=== PATIENT | male | born 1945 | race African-American/Black ===

== ENCOUNTER 2019-01-15 16:22 | Emergency (ER) | payer OTHER ==
[~2019-01-15] VITALS: Ht 170.2 cm; Wt 64.9 kg
[2019-01-15 16:22] VITALS: BP 166/101
--- NOTE | 2019-01-15 16:22 | NUR ---
PT BIBA BLS TO ER BED 04
--- NOTE | 2019-01-15 16:42 | NUR ---
73M BIB EMS, PT IS HOMELESS AND REPORTS BURNING AND FRQUENCY. PT REPORTS HIS ELDER CATHETER TUBING BROKE AND NOW REPORTS PAIN IN [place] 10/10 BURNING AND CLOUDY URINE. CATHETER PLACED 3 WEEKS AGO FOR RETENTION. PT IS INCONTINENT. DENIES N/V/FEVER. STATES DIARRHEA X 2 WEEKS. PMH--HTN, USES W/C, LL EXTREMITY ABOVE THE KNEE AMPUTATION (REPORTS INFECTION) NKA
--- NOTE | 2019-01-15 18:21 | NUR ---
PATIENT VOIDED A TINY AMOUNT. ABLE TO DO DIPSTICK, BUT INADEQUATE FOR CULTURE AND UA. PT STATES HE WILL TRY AGAIN LATER. REFUSED I&O CATH.
--- NOTE | 2019-01-15 18:26 | NUR ---
CHILD CENTER ASSISTANT SAID SHE WILL TAKE URINE SAMPLE BACK TO LAB AND SEE IT IT IS ENOUGH QUANTITY.
--- NOTE | 2019-01-15 18:37 | NUR ---
PT DENIES PAIN. WILL TRY TO PROVIDE MORE URINE NOW.
[2019-01-15 18:41] LABS: APPEARANCE,URINE SL CLOUDY (CLEAR); BILIRUBIN,URINE 1+ (NEGATIVE); BLOOD, URINE 3+ (NEGATIVE); COLOR,URINE YELLOW (YELLOW); LEUKOCYTE ESTERASE ,URINE 2+ (NEGATIVE); NITRITE, URINE POSITIVE (NEGATIVE); UGLUCOSE NEGATIVE (NEGATIVE)
[2019-01-15 18:42] LABS: RBC,URINE TOO NUMEROUS TO COUN /HPF (0-5); WBC,URINE TOO MANY TO COUNT /HPF (0-5)
--- NOTE | 2019-01-15 19:00 | NUR ---
MT CALLING FOR BUS PASS AND FOOD PACK.
[2019-01-15 19:10] VITALS: BP 158/98
--- NOTE | 2019-01-15 19:10 | NUR ---
Patient discharged with v/s stable. Written and verbal after care instructions given and explained. Patient alert, oriented and verbalized understanding of instructions. D/C VIA WHEELCAHIR. VSS. BUS PASS AND HOMELESS FOOD PACK AND RESOURCES GIVEN TO PT. All questions addressed prior to discharge. ID band removed. Patient advised to follow up with PMD. Rx of FLOMAX, CEPHALEXIN, HCTZ given. Patient educated on indication of medication including possible reaction and side effects. Opportunity to ask questions provided and answered.
== END 2019-01-15 19:10 | disposition home or self-care (01) ==
LOC: MED 16:22
DX: N39.0 Urinary tract infection, site not specified (principal); N40.0 Benign prostatic hyperplasia without lower urinary tract symptoms; I10 Essential (primary) hypertension; Z98.890 Other specified postprocedural states; Z59.0 Homelessness
CPT/HCPCS: 81001; 87086; 87186; 99283